=== PATIENT | female | born 1980 | race Caucasian/White ===

== ENCOUNTER 2018-04-17 10:48 | Emergency (ER) | payer SELFPAY ==
[~2018-04-17] VITALS: Ht 165.1 cm; Wt 73.7 kg
[2018-04-17 11:41] LABS: ALANINE AMINOTRANSFERASE 94 U/L (12-78); ALBUMIN 3.4 G/DL (3.4-5.0); ALBUMIN/GLOBULIN RATIO 0.9 (1.1-1.5); ALKALINE PHOSPHATASE 260 IU/L (46-116); ANION GAP 21 (8-16); ASPARTATE AMINO TRANSFERASE 528 U/L (10-37); BILIRUBIN,TOTAL 2.2 MG/DL (0.1-1.0); BLOOD UREA NITROGEN 5 MG/DL (7-18); BUN/CREATININE RATIO 5.7 (6.6-38.0); CALCIUM 8.9 MG/DL (8.5-10.1); CHLORIDE 97 MMOL/L (99-107); CREATININE 0.88 MG/DL (0.40-0.90); GLUCOSE 117 MG/DL (70-104); POTASSIUM 3.5 MMOL/L (3.5-5.1); SODIUM 140 MMOL/L (135-145); TOTAL CARBON DIOXIDE 21.9 MMOL/L (24-32); TOTAL PROTEIN 7.3 G/DL (6.4-8.2); eGFR 73 ML/MIN
[2018-04-17] MEDS ORDERED: normal saline 1000ml 1,000 ML IV ONE ×2 (11:45)
[2018-04-17 11:55] LABS: BASOPHILS % (AUTO) 0.2 % (0-1); EOSINOPHILS % (AUTO) 0.1 % (0-6); HEMATOCRIT 38.1 % (35.0-45.0); HEMOGLOBIN 13.3 g/dl (12.0-16.0); LYMPHOCYTES % (AUTO) 10.2 % (21-51); MEAN CORPUSCULAR HEMOGLOBIN 39.3 PG (27.0-31.0); MEAN CORPUSCULAR HGB CONC 34.9 % (33.0-36.5); MEAN CORPUSCULAR VOLUME 112.7 FL (78-98); MEAN PLATELET VOLUME 7.9 FL (7.4-10.4); MONOCYTES # (AUTO) 0.7 X10'3 (0-0.9); MONOCYTES % (AUTO) 7.1 % (2-12); NEUTROPHILS # (AUTO) 8.2 X10'3 (1.8-7.7); NEUTROPHILS % (AUTO) 82.4 % (42-75); PLATELET COUNT 173 X10'3 (140-440); RED BLOOD COUNT 3.38 X10'6 (4.20-5.60); RED CELL DISTRIBUTION WIDTH 17.1 % (11.5-14.5)
[2018-04-17 12:05] LABS: INR 1.2 INR
[2018-04-17] MEDS ORDERED: morphine 4 MG/ML inj SYRINge IV PRN (12:05)
[2018-04-17] MEDS ORDERED: ondansetron/PF 4mg/2ml inj IV ONE (12:05)
[2018-04-17 12:18] LABS: URINE HCG NEGATIVE (NEG)
[2018-04-17 12:20] LABS: CLARITY,URINE CLOUDY (Clear); COLOR,URINE AMBER (Yellow); GLUCOSE, URINE NEGATIVE (Neg); KETONES,URINE 15 mg/dl (Neg); LEUKOCYTE ESTERASE ,URINE TRACE (Neg); NITRITES, URINE POSITIVE (Neg); OCCULT BLOOD,URINE TRACE-LYSED (Neg); PH,URINE 5.5 (4.8-8.0); PROTEIN,URINE 100 mg/dl (Neg)
[2018-04-17 12:21] LABS: LIPASE 897 U/L (73-393)
[2018-04-17 12:25] LABS: UA COLLECTION TYPE CLN CATCH MIDSTREAM
[2018-04-17 12:27] LABS: BACTERIA,URINE 4+ /HPF (Neg); MUCUS STRANDS FEW /LPF (Neg); RBC,URINE 0-2 /HPF (0-2); SQUAMOUS EPITHELIAL CELL,UR MANY /LPF (FEW); WBC,URINE 0-4 /HPF (0-4)
[2018-04-17] MEDS ORDERED: ringers solution, lactated 1000ml IV soln IV ONE (12:30)
[2018-04-17] MEDS ORDERED: LORazepam 2 mg/ml vial IV ONE (12:30)
[2018-04-17] MEDS ORDERED: proCHLORperazine 10 MG/2 ml inj IV ONE (12:30)
[2018-04-17] MEDS ORDERED: ETON68IM3 SQ (14:56)
[2018-04-17] MEDS ORDERED: ONDA8TAB6 PO (15:27)
[2018-04-17] MEDS ORDERED: GABA-532 PO (15:27)
[2018-04-17 15:55] VITALS: BP 135/72
== END 2018-04-17 15:50 | disposition home or self-care (01) ==
LOC: ER 10:49
DX: K70.10 Alcoholic hepatitis without ascites (principal); K85.90 Acute pancreatitis without necrosis or infection, unspecified; E86.0 Dehydration; E87.2 Acidosis; Z79.899 Other long term (current) drug therapy
CPT/HCPCS: 36415; 74176; 80053; 81001; 81025; 83690; 85025; 85610; 96361; 96374; 96375; 99285; J0780; J2060; J2270; J2405; J7120; J7030